=== PATIENT | male | born 1990 | race Caucasian/White ===

== ENCOUNTER 2025-02-06 04:07 | Emergency (ER) | payer OTHER, SELFPAY ==
[2025-02-06 04:12] VITALS: BP 125/80; PULSE 109; RESP 16; TEMP 37.2; O2SAT 96; BMI 36.9
[2025-02-06] MEDS: LIDOCAINE 1% 5 ml (pf) 5 ML VIAL 3 ML INJECTION (04:42)
--- NOTE | 2025-02-06 04:42 | ED_ITS ---
HPI - Wound/Laceration General Date Seen: 02/06/25 Chief Complaint: Laceration/Wound Stated Complaint: Cut left index finger on bottle Time Seen by Provider: 02/06/25 04:18 Source: patient Mode of arrival: ambulatory Limitations: no limitations History of Present Illness HPI narrative: Patient is a 34-year-old male who is drinking and playing video games when he dropped a bottle of blue toes and subsequently fell on it. He suffered a laceration to his left 2nd finger. Last tetanus shot was more than 10 years ago. Bleeding was controlled with direct pressure. No concerns regarding f oreign body. Related Data Home Medications ?Medication ?Instructions ?Recorded ?Confirmed No Known Home Medications 02/06/25 02/06/25 Allergies Allergy/AdvReac Type Severity Reaction Status Date / Time No Known Drug Allergies Allergy Verified 02/06/25 04:13 Review of Systems Narrative: Review of systems is outlined above otherwise noted to be negative. He is unemployed. [facility] Social History How often do you have a drink containing alcohol: monthly or less AUDIT-C Alcohol total score: 1 Exam Narrative: Exam Narrative: Objective: Vitals noted. He has a 1.5 cm laceration to the middle portion of the left index finger. There is a clean laceration. No foreign body. Procedure: Following verbal consent the area is prepped and draped in sterile fashion, scrubbed with a Betadine solution. The wound is closed with four simple interrupted sutures of 5.0 Ethilon. Good wound edge approximation and hemostasis arch heave. The wound is dressed with bacitracin and a Band-Aid. Estimated blood loss is 5 mL. No complications. Const: Vital Signs, click to edit/add: Vital Signs - 24 hr 02/06/25 04:12 Temperature 98.9 F Pulse Rate [Pulse Oximeter] 109 H Respiratory Rate 16 Blood Pressure [Le ft Upper Arm] 125/80 Pulse Oximetry 96 Oxygen Delivery Me thod Room Air Course Course ED Course: Patient seen and examined. Wound is closed. Tdap is given. Vital Signs Vital signs: Initial Vital Signs Temperature 98.9 F 02/06/25 04:12 Temperature Source Temporal Artery Scan 02/06/25 04:12 Pulse Rate 109 H 02/06/25 04:12 Respiratory Rate 16 02/06/25 04:12 Blood Pressure 125/80 02/06/25 04:12 Blood Pressure Mean 95 03/14/25 04:12 Blood Pressure Position Sitting 02/06/25 04:12 Pulse Oximetry 96 02/06/25 04:12 Oxygen Delivery Method Room Air 02/06/25 04:12 Vital Signs Temperature 98.9 F 02/06/25 04:12 Pulse Rate 109 H 02/06/25 04:12 Respiratory Rate 16 02/06/25 04:12 Blood Pressure 125/80 02/06/25 04:12 Pulse Oximetry 96 02/06/25 04:12 Oxygen Delivery Method Room Air 02/06/25 04:12 Temperature 98.9 F 02/06/25 04:12 Pulse Rate 109 H 02/06/25 04:12 Respiratory Rate 16 02/06/25 04:12 Blood Pressure 125/80 02/06/25 04:12 Pulse Oximetry 96 02/06/25 04:12 Oxygen Delivery Method Room Air 02/06/25 04:12 Discharge Plan Discharge Clinical Impression: Finger laceration Patient Disposition: Home, Self-Care Condition: Improved Additional Instructions: Keep wound clean, dry, protected. Watch for signs of infection. Sutures out in 10 days. Prescriptions: No Action No Known Home Medications Follow Up/Referrals: Provider,Not a Local [Primary Care Provider] - Stand Alone Forms: MyHealth Info Instructions
[2025-02-06 04:45] VITALS: BP 132/85; PULSE 99; RESP 16; TEMP 37.2; O2SAT 96
== END 2025-02-06 04:48 | disposition home or self-care (01) ==
LOC: ED 04:47
PROVIDERS: Emergency Provider Family Medicine
DX: S61.211A Laceration without foreign body of left index finger without damage to nail, initial encounter (principal); W45.8XXA Other foreign body or object entering through skin, initial encounter
CPT/HCPCS: 12001; 99281; 99283